=== PATIENT | female | born 1940 | race Caucasian/White ===

== ENCOUNTER → 2016-04-25 | Outpatient (CLI) | payer MEDICARE, BC ==
[~2016-04-25] MED LIST: AMOXICILLIN 25250 MG PO; AMOXICILLIN 50500 MG PO; CEFTIN500 MG PO; CIPRO 250MG TA250 MG PO; CRANBERRY1 CAP PO; DARVOCET N 101 UDTAB PO; FOSAMAX 70MG TA70 MG PO; GLUCOSAMINE & C1 TA1 PO; LASIX 40MG TABL40 MG PO; LEVOTHYROXIN0.125 MG PO; LIPITOR40 MG PO; LISINOPRIL40 MG PO; MEDROL 4MG DOSPA4 MG PO; MOTRIN800 MG PO; NORCO 325 MG-51 TAB PO; PRILOSEC 20MG20 MG PO; SYNTHROID0.1 MG/TAB PO; TRIAMTERENE/HCT1 TA2 PO; VITAMIN C; VITAMIN D1000 IU PO; VTAMINC250TA PO; ZESTRIL40 MG PO
== END ==
LOC: MC.RAD 09:54
DX: Z12.31 Encounter for screening mammogram for malignant neoplasm of breast (principal)

== ENCOUNTER → 2016-07-04 | Outpatient (CLI) | payer MEDICARE, BC | LOC: COL.RAD 10:16 | DX: M54.5 Low back pain (principal); Z87.440 Personal history of urinary (tract) infections ==

== ENCOUNTER → 2017-04-28 | Outpatient (CLI) | payer MEDICARE, BC | LOC: MC.RAD 13:15 | DX: Z12.31 Encounter for screening mammogram for malignant neoplasm of breast (principal); Z98.890 Other specified postprocedural states ==

== ENCOUNTER → 2017-06-09 | Outpatient (REF) | LOC: COL.CARD 15:48 | DX: Z01.89 Encounter for other specified special examinations (principal) ==

== ENCOUNTER → 2018-05-14 | Outpatient (CLI) | payer MEDICARE, BC | LOC: MC.RAD 11:40 | DX: Z12.31 Encounter for screening mammogram for malignant neoplasm of breast (principal); N63.10 Unspecified lump in the right breast, unspecified quadrant ==

== ENCOUNTER → 2018-05-22 | Outpatient (CLI) | payer MEDICARE, BC | LOC: MC.RAD 05-20 14:00 | DX: N63.10 Unspecified lump in the right breast, unspecified quadrant (principal) ==

== ENCOUNTER → 2018-11-19 | Outpatient (CLI) | payer MEDICARE, BC | LOC: MC.RAD 09:00 | DX: N64.89 Other specified disorders of breast (principal); R92.8 Other abnormal and inconclusive findings on diagnostic imaging of breast ==

== ENCOUNTER → 2018-12-18 | Outpatient (CLI) | payer MEDICARE, BC ==
[2018-12-18 11:48] LABS: BASO # 0.1 (0.0-0.2); BASO % 0.9 % (0.0-2.0); EOS # 0.2 (0.0-0.7); EOS % 4.4 % (0-4.0); GRAN # 3.1 (1.4-6.5); GRAN % 58.7 % (42.2-75.2); HEMATOCRIT 39.1 % (37.0-47.0); HEMOGLOBIN 12.6 g/dl (12.5-16.0); LYMPH # 1.4 (1.2-3.4); LYMPH % 26.5 % (20.0-51.0); MEAN CELL VOLUME 95 fl (80.0-100.0); MEAN CORPUSCULAR HEMOGLOBIN 31 pg (27.0-31.0); MEAN CORPUSCULAR HGB CONC 32 g/dl (33.0-37.0); MEAN PLATELET VOLUME 10.3 fl (7.4-10.4); MONO # 0.5 (0.1-0.6); MONO % 9.3 % (1.7-9.3); PLATELET COUNT 192 K/mm3 (130-400); RED BLOOD COUNT 4.12 M/mm3 (4.10-5.30); REDCELL DISTRIBUTION WIDTH-CV 14.3 % (11.5-14.5)
[2018-12-18 11:53] LABS: ALBUMIN 4.5 gm/dL (3.5-5.0); BILIRUBIN,TOTAL 0.6 mg/dL (0.0-1.0); CALCIUM 10.3 mg/dL (8.4-10.2); CREATININE, serum 1.48 (0.52-1.25); POTASSIUM 5.3 mmol/L (3.4-5.0); TOTAL PROTEIN 7.5 gm/dL (6.4-8.2)
== END ==
LOC: COL.LAB 11:21
PROVIDERS: Nurse Practitioner Family
DX: R19.7 Diarrhea, unspecified (principal)

== ENCOUNTER → 2019-06-10 | Outpatient (CLI) | payer MEDICARE, BC | LOC: MC.RAD 13:40 | DX: Z12.31 Encounter for screening mammogram for malignant neoplasm of breast (principal) ==

== ENCOUNTER → 2019-11-30 | Outpatient (CLI) | payer MEDICARE, BC ==
[~2019-11-30] MED LIST changes: +ASPIRIN 81M81 MG/TA2 PO; +CRANBERRY250 MG PO; +DITROPAN 5MG TAB5 MG PO; +ENTOCORT EC3 MG PO; +FLORAJEN A20 Billion PO; +LIPITOR20 MG PO; +MAGNESIUM500 MG PO; +MASON NATURAL1000 MG PO; +NORVASC 5MG5 MG/TAB PO; +ONE-A-DAY ESSE1 EACH PO; +PEPCID 20MG TAB20 MG PO; +PREVALITE4 GM/5.5 G PO; +SYNTHROID0.088 MG/T PO; +TYLENOL 500MG500 MG PO; +TYLENOL PM EXTR1 TA1 PO; +VITAMINC1000TA PO; +VITAMIND3 5000 PO; +ZESTRIL 20MG TA20 MG PO; +ZYLOPRIM 100MG100 MG PO
[2019-11-30 13:11] LABS: BASO % 0.5 % (0.0-2.0); EOS % 0.5 % (0-4.0); GRAN # 6.4 (1.4-6.5); GRAN % 79.2 % (42.2-75.2); LYMPH # 1.1 (1.2-3.4); LYMPH % 14.1 % (20.0-51.0); MEAN CELL VOLUME 95 fl (80.0-100.0); MEAN CORPUSCULAR HEMOGLOBIN 31 pg (27.0-31.0); MEAN CORPUSCULAR HGB CONC 33 g/dl (33.0-37.0); MEAN PLATELET VOLUME 10.5 fl (7.4-10.4); MONO # 0.4 (0.1-0.6); MONO % 5.3 % (1.7-9.3); PLATELET COUNT 180 K/mm3 (130-400); RED BLOOD COUNT 4.22 M/mm3 (4.10-5.30); REDCELL DISTRIBUTION WIDTH-CV 13.8 % (11.5-14.5)
[2019-11-30 13:33] LABS: ALANINE AMINOTRANSFERASE 16 U/L (4-34); ALBUMIN 4.5 gm/dL (3.5-5.0); ALKALINE PHOSPHATASE 78 U/L (50-136); ANION GAP 7 mmol/L (7-16); AST,SGOT 28 U/L (15-37); BILIRUBIN,TOTAL 0.4 mg/dL (0.0-1.0); BLOOD UREA NITROGEN 29 mg/dL (7-17); CALCIUM 10.3 mg/dL (8.4-10.2); CARBON DIOXIDE 25 mmol/L (22-30); CHLORIDE 102 mmol/L (98-107); CREATININE, serum 1.25 (0.52-1.25); GLUCOSE 100 mg/dL (74-106); MAGNESIUM 2.1 mg/dL (1.6-2.3); POTASSIUM 4.9 mmol/L (3.4-5.0); SODIUM 135 mmol/L (137-145); TOTAL PROTEIN 7.6 gm/dL (6.4-8.2)
[2019-11-30 13:51] LABS: TROPONIN-I < 0.012 ng/mL (0.000-0.035)
[2019-11-30 14:03] LABS: THYROID STIMULATING HORMONE 0.707 uIU/mL (0.465-4.680)
== END ==
LOC: COL.RAD 12:32
PROVIDERS: Nurse Practitioner Family
DX: K44.9 Diaphragmatic hernia without obstruction or gangrene (principal)

== ENCOUNTER 2019-12-03 14:59 | Outpatient (CLI) | payer MEDICARE, BC ==
[~2019-12-03] VITALS: Ht 165.1 cm; Wt 78.0 kg
[~2019-12-03 14:59] MED LIST changes: -ASPIRIN 81M81 MG/TA2 PO; -CRANBERRY250 MG PO; -DITROPAN 5MG TAB5 MG PO; -ENTOCORT EC3 MG PO; -FLORAJEN A20 Billion PO; -LIPITOR20 MG PO; -MAGNESIUM500 MG PO; -MASON NATURAL1000 MG PO; -NORVASC 5MG5 MG/TAB PO; -ONE-A-DAY ESSE1 EACH PO; -PEPCID 20MG TAB20 MG PO; -PREVALITE4 GM/5.5 G PO; -SYNTHROID0.088 MG/T PO; -TYLENOL 500MG500 MG PO; -TYLENOL PM EXTR1 TA1 PO; -VITAMINC1000TA PO; -VITAMIND3 5000 PO; -ZESTRIL 20MG TA20 MG PO; -ZYLOPRIM 100MG100 MG PO
[2019-12-03 15:17] VITALS: BP 130/55; PULSE 84; TEMP 98.9
[2019-12-03] MEDS ORDERED: ASPIRIN 81M81 MG/TA2 PO (16:00)
[2019-12-03] MEDS ORDERED: NORVASC 5MG5 MG/TAB PO (16:00)
[2019-12-03] MEDS ORDERED: ZESTRIL 20MG TA20 MG PO (16:01)
[2019-12-03] MEDS ORDERED: LIPITOR20 MG PO (16:01)
[2019-12-03] MEDS ORDERED: SYNTHROID0.088 MG/T PO (16:02)
[2019-12-03] MEDS ORDERED: LASIX 40MG TABL40 MG PO (16:02)
[2019-12-03] MEDS ORDERED: PEPCID 20MG TAB20 MG PO (16:03)
[2019-12-03] MEDS ORDERED: DITROPAN 5MG TAB5 MG PO (16:03)
[2019-12-03] MEDS ORDERED: ZYLOPRIM 100MG100 MG PO (16:04)
[2019-12-03] MEDS ORDERED: ENTOCORT EC3 MG PO (16:05)
[2019-12-03] MEDS ORDERED: TYLENOL 500MG500 MG PO (16:05)
[2019-12-03] MEDS ORDERED: PREVALITE4 GM/5.5 G PO (16:05)
[2019-12-03] MEDS ORDERED: VITAMINC1000TA PO (16:06)
[2019-12-03] MEDS ORDERED: TYLENOL PM EXTR1 TA1 PO (16:06)
[2019-12-03] MEDS ORDERED: MASON NATURAL1000 MG PO (16:07)
[2019-12-03] MEDS ORDERED: CRANBERRY250 MG PO (16:07)
[2019-12-03] MEDS ORDERED: VITAMIND3 5000 PO (16:08)
[2019-12-03] MEDS ORDERED: ONE-A-DAY ESSE1 EACH PO (16:10)
[2019-12-03] MEDS ORDERED: FLORAJEN A20 Billion PO (16:10)
[2019-12-03] MEDS ORDERED: MAGNESIUM500 MG PO (16:15)
--- NOTE | 2019-12-03 16:34 | NUR ---
Pt tolerated infusion without difficulty. INT DC'd with catheter intact, bleeding controlled. Pt ambulates out from dept.
== END 2019-12-03 16:35 | disposition home or self-care (01) ==
LOC: EUO 14:59
DX: M81.0 Age-related osteoporosis without current pathological fracture (principal)
CPT/HCPCS: J3489

== ENCOUNTER → 2020-07-13 | Outpatient (CLI) | payer MEDICARE, BC ==
[~2020-07-13] MED LIST changes: +ASPIRIN 81M81 MG/TA2 PO; +CRANBERRY250 MG PO; +DITROPAN 5MG TAB5 MG PO; +ENTOCORT EC3 MG PO; +FLORAJEN A20 Billion PO; +LIPITOR20 MG PO; +MAGNESIUM500 MG PO; +MASON NATURAL1000 MG PO; +NORVASC 5MG5 MG/TAB PO; +ONE-A-DAY ESSE1 EACH PO; +PEPCID 20MG TAB20 MG PO; +PREVALITE4 GM/5.5 G PO; +SYNTHROID0.088 MG/T PO; +TYLENOL 500MG500 MG PO; +TYLENOL PM EXTR1 TA1 PO; +VITAMINC1000TA PO; +VITAMIND3 5000 PO; +ZESTRIL 20MG TA20 MG PO; +ZYLOPRIM 100MG100 MG PO
== END ==
LOC: MC.RAD 09:30
DX: Z12.31 Encounter for screening mammogram for malignant neoplasm of breast (principal)

== ENCOUNTER 2020-08-08 08:00 | Emergency (ER) | payer MEDICARE, BC ==
[~2020-08-08] VITALS: Ht 162.6 cm; Wt 74.1 kg
[2020-08-08 08:18] VITALS: TEMP 97.7
[2020-08-08 09:53] LABS: COLLECTION METHOD CATHETER
[2020-08-08 09:59] LABS: MUCOUS Present /lpf; PH 5 (5-8); SQUAMOUS EPITHELIAL None Seen /hpf; URINE APPEARANCE Clear; URINE BACTERIA None Seen /hpf; URINE BILIRUBIN Negative (NEGATIVE); URINE BLOOD Negative (NEGATIVE); URINE COLOR Straw; URINE GLUCOSE Negative (NEGATIVE); URINE KETONE Negative (NEGATIVE); URINE LEUKOCYTE ESTERASE Negative (NEGATIVE); URINE NITRATE Negative (NEGATIVE); URINE PROTEIN(semi-quant) Negative (NEGATIVE); URINE RBC 0-2 /hpf; URINE UROBILINOGEN Negative (NEGATIVE)
[2020-08-08 10:59] VITALS: BP 125/67; PULSE 76
== END 2020-08-08 10:59 | disposition home or self-care (01) ==
LOC: COL.ER 08:00
PROVIDERS: Emergency Medicine
DX: S39.011A Strain of muscle, fascia and tendon of abdomen, initial encounter (principal); Z79.51 Long term (current) use of inhaled steroids; Z79.82 Long term (current) use of aspirin; Z98.890 Other specified postprocedural states

== ENCOUNTER 2020-09-08 12:20 | Emergency (ER) | payer MEDICARE, BC ==
[~2020-09-08] VITALS: Ht 162.6 cm; Wt 73.2 kg
[2020-09-08 12:42] VITALS: BP 172/69; TEMP 97.8
[2020-09-08 14:40] VITALS: PULSE 78
== END 2020-09-08 14:45 | disposition home or self-care (01) ==
LOC: COL.ER 12:20
DX: S05.42XA Penetrating wound of orbit with or without foreign body, left eye, initial encounter (principal); S39.011A Strain of muscle, fascia and tendon of abdomen, initial encounter; S60.212A Contusion of left wrist, initial encounter; S09.93XA Unspecified injury of face, initial encounter; I10 Essential (primary) hypertension; Z79.899 Other long term (current) drug therapy; W01.0XXA Fall on same level from slipping, tripping and stumbling without subsequent striking against object, initial encounter

== ENCOUNTER 2020-09-13 09:15 | Outpatient (RCR) | payer MEDICARE, BC | END 2020-09-13 11:33 | disposition home or self-care (01) | LOC: MKS.ESL.PT 09:15 | DX: M54.5 Low back pain (principal); N39.0 Urinary tract infection, site not specified ==

== ENCOUNTER → 2020-11-17 | Outpatient (CLI) | payer MEDICARE, BC ==
[2020-11-17 13:43] LABS: HEMATOCRIT 40.3 % (37.0-47.0); HEMOGLOBIN 12.7 g/dl (12.5-16.0); MEAN CELL VOLUME 98 fl (80.0-100.0); MEAN CORPUSCULAR HEMOGLOBIN 31 pg (27.0-31.0); MEAN CORPUSCULAR HGB CONC 32 g/dl (33.0-37.0); PLATELET COUNT 192 K/mm3 (130-400); RED BLOOD COUNT 4.13 M/mm3 (4.10-5.30)
[2020-11-17 13:52] LABS: CALCIUM 9.6 mg/dL (8.4-10.2); CREATININE, serum 1.16 (0.52-1.25); POTASSIUM 4.8 mmol/L (3.4-5.0)
== END ==
LOC: COL.LAB 12:54
PROVIDERS: Family Medicine
DX: R00.0 Tachycardia, unspecified (principal)

== ENCOUNTER 2020-11-27 13:55 | Outpatient (CLI) | payer MEDICARE, BC ==
[~2020-11-27] VITALS: Ht 162.6 cm; Wt 76.0 kg
[2020-11-27 15:32] VITALS: BP 150/65; PULSE 79; TEMP 98.4
== END 2020-11-27 16:00 | disposition home or self-care (01) ==
LOC: EUO 13:55
DX: M81.0 Age-related osteoporosis without current pathological fracture (principal)
CPT/HCPCS: J3489

== ENCOUNTER 2020-12-28 08:30 | Outpatient (RCR) | payer MEDICARE, BC | END 2020-12-28 12:46 | disposition home or self-care (01) | LOC: MKS.ESL.PT 08:30 | DX: I12.9 Hypertensive chronic kidney disease with stage 1 through stage 4 chronic kidney disease, or unspecified chronic kidney disease (principal); N18.31 Chronic kidney disease, stage 3a; M81.0 Age-related osteoporosis without current pathological fracture; R26.81 Unsteadiness on feet; E03.9 Hypothyroidism, unspecified; M1A Chronic gout ==

== ENCOUNTER 2021-11-30 12:51 | Outpatient (CLI) | payer MEDICARE, BC ==
[~2021-11-30] VITALS: Ht 162.6 cm; Wt 78.0 kg
[2021-11-30 13:00] VITALS: BP 121/65; PULSE 77; TEMP 97.9
== END 2021-11-30 13:50 | disposition home or self-care (01) ==
LOC: EUO 12:51
DX: M81.0 Age-related osteoporosis without current pathological fracture (principal)
CPT/HCPCS: J3489

== ENCOUNTER → 2023-02-12 | Outpatient (CLI) | payer MEDICARE, BC | LOC: CANPRECLI → MC.RAD 12-05 11:45 | DX: Z12.31 Encounter for screening mammogram for malignant neoplasm of breast (principal) ==

== ENCOUNTER 2023-08-23 09:02 | Emergency (ER) | payer MEDICARE, BC ==
[~2023-08-23] VITALS: Ht 165.1 cm; Wt 75.0 kg
[2023-08-23 09:11] VITALS: TEMP 98
[2023-08-23 09:45] VITALS: BP 106/71; PULSE 69
== END 2023-08-23 09:45 | disposition home or self-care (01) ==
LOC: COL.ER 09:02
DX: R19.7 Diarrhea, unspecified (principal)

== ENCOUNTER → 2023-12-31 | Outpatient (CLI) | payer MEDICARE, BC | LOC: COL.RAD 08:23 | DX: K44.9 Diaphragmatic hernia without obstruction or gangrene (principal); K21.9 Gastro-esophageal reflux disease without esophagitis; K22.89 Other specified disease of esophagus ==

== ENCOUNTER 2024-02-15 17:21 | Emergency (ER) | payer MEDICARE, BC ==
[~2024-02-15] VITALS: Ht 165.1 cm; Wt 73.2 kg
[2024-02-15 17:27] VITALS: TEMP 97.3
[2024-02-15 17:43] LABS: COLLECTION METHOD CLEAN CATCH
[2024-02-15] MEDS ORDERED: NS 1,000 ML IV ONE ×2 (17:45→18:45)
[2024-02-15 17:48] LABS: URINE APPEARANCE CLEAR (CLEAR/HAZY); URINE BLOOD NEGATIVE (NEGATIVE); URINE COLOR YELLOW (YELLOW); URINE GLUCOSE NEGATIVE (NEGATIVE); URINE KETONE NEGATIVE (NEGATIVE); URINE NITRATE NEGATIVE (NEGATIVE); URINE PROTEIN(semi-quant) TRACE (NEGATIVE); URINE UROBILINOGEN 0.2 E.U/dL (0.2-1.0)
[2024-02-15 18:04] LABS: BASO # 0.1 K/mm3 (0.0-0.2); BASO % 0.6 % (0.0-2.0); EOS # 0.4 K/mm3 (0.0-0.7); GRAN # 5.5 K/mm3 (1.4-6.5); GRAN % 63.2 % (42.2-75.2); HEMOGLOBIN 11.8 g/dl (12.5-16.0); LYMPH # 1.8 K/mm3 (1.2-3.4); LYMPH % 21.2 % (20.0-51.0); MEAN CELL VOLUME 97 fl (80.0-100.0); MEAN CORPUSCULAR HEMOGLOBIN 32 pg (27-31); MEAN CORPUSCULAR HGB CONC 33 g/dl (33.0-37.0); MONO # 0.9 K/mm3 (0.1-0.6); MONO % 10.7 % (1.7-9.3); PLATELET COUNT 195 K/mm3 (130-400); RED BLOOD COUNT 3.71 M/mm3 (4.10-5.30); REDCELL DISTRIBUTION WIDTH-CV 14.8 % (11.5-14.5)
[2024-02-15 18:09] LABS: HEMATOCRIT 35.8 % (37.0-47.0)
[2024-02-15 18:29] LABS: ALBUMIN 3.5 g/dL (3.4-4.8); BILIRUBIN,TOTAL 0.3 mg/dL (0.2-1.2); CALCIUM 8.1 mg/dL (8.4-10.2); CREATININE, serum 1.56 mg/dL (0.57-1.11); POTASSIUM 4.1 mEq/L (3.5-4.5); TOTAL PROTEIN 6.2 g/dl (6.2-8.1)
[2024-02-15] MEDS ORDERED: cefTRIAXone 1 G in Water For Injection,Sterile 10 ML IV ONE (19:00)
[2024-02-15] MEDS ORDERED: CEFTIN500 MG PO (20:40)
[2024-02-15 21:16] LABS: CALCIUM 7.6 mg/dL (8.4-10.2); CREATININE, serum 1.4 mg/dL (0.57-1.11); POTASSIUM 3.8 mEq/L (3.5-4.5)
[2024-02-15 21:25] VITALS: BP 144/74; PULSE 78
== END 2024-02-15 21:25 | disposition home or self-care (01) ==
LOC: COL.ER 17:21
PROVIDERS: Nurse Practitioner Primary Care
DX: N39.0 Urinary tract infection, site not specified (principal)
CPT/HCPCS: J0696; J7030